=== PATIENT | male | born 1970 | race Caucasian/White ===

== ENCOUNTER → 2020-05-15 | Outpatient (CLI) | payer OTHER ==
[~2020-05-15] MED LIST: BACT800T; IBUP800T; ISOVUE-300 61% 50ML VIAL As Ordered ONE; PERC5TAB8; ZYVO100T
--- NOTE | 2020-07-04 08:09 | REP ---
CT ARTHROGRAPHY LEFT ELBOW WITH INTRAARTICULAR CONTRAST This report was delayed due to a protracted episode of network disruption experienced by this facility and by our retrieval of comparison radiographs. COMPARISON: 10/27/2019 and show tendon insertion site and osteoarthritic spurring. TECHNIQUE: The injection procedure was performed and dictated separately. Postinjection CT acquisition was performed with the elbow flexed at 90 degrees. Helical scanning is performed in 2 mm axial images and reformatted. Coronal and sagittal MPR images are generated and reviewed. FINDINGS: There is good opacification of the elbow articulation. No definite loose body. There is osteoarthritic spurring at the radiocapitellar, ulnotrochlear, and proximal radioulnar articulations. There is medial and lateral epicondylar spurring as seen on the radiographs. No focal articular cartilage deficit is appreciated. IMPRESSION: No definite loose body. Osteoarthritis. Medial and lateral epicondylar tendon insertion site spurring. MTDD
--- NOTE | 2020-07-04 08:11 | REP ---
LEFT ELBOW ARTHROGRAM: The procedure was performed under the direct supervision of Dr. Lowe. PROCEDURE: The benefits and risks including, but not limited to pain, infection, bleeding and anaphylaxis were explained to the patient and informed consent was obtained. The left radiohumeral joint space was localized using fluoroscopic guidance. The skin was prepped and draped in a sterile fashion. 1% lidocaine was used as a local anesthetic. Using fluoroscopic guidance, a 22-gauge needle was inserted and advanced into the joint. 7 cc of Isovue 300 was injected. The needle was removed and the patient was taken to CT scan for post procedural imaging. The patient tolerated the procedure well and there were no immediate complications. Less than 6 seconds of fluoroscopy time was utilized for this procedure. PASTOR
== END ==
LOC: M RADPRO 13:00
PROVIDERS: ATTEND Orthopaedic Surgery Hand Surgery
DX: M19.022 Primary osteoarthritis, left elbow (principal); M25.722 Osteophyte, left elbow
CPT/HCPCS: 24220; 73201; 77002; Q9967

== ENCOUNTER → 2020-05-17 | Outpatient (CLI) | payer OTHER ==
--- NOTE | 2020-07-04 08:12 | REP ---
RIGHT ELBOW ARTHROGRAM: The procedure was performed under the direct supervision of Dr. Lowe. The benefits and risks, including but not limited to pain, infection, bleeding an anaphylaxis were explained to the patient and informed consent was obtained. PROCEDURE: The right radial humeral joint space was localized using fluoroscopic guidance. The skin was prepped and draped in a sterile fashion. 1% lidocaine was used as a local anesthetic. Using fluoroscopic guidance, a 22-gauze needle was inserted and advanced into the joint. 6 cc of Isovue 300 was injected. The needle was removed and the patient was taken to CT scan for post procedural imaging. The patient tolerated the procedure well and there were no immediate complications. Less than 6 seconds of fluoroscopy time was utilized for this procedure. PASTOR
--- NOTE | 2020-07-04 08:14 | REP ---
CT ARTHROGRAM OF THE RIGHT ELBOW: HISTORY: Locking. TECHNIQUE: CT imaging performed of the right elbow with multiplanar reconstruction images following arthrogram procedure. The study is somewhat limited as apparently the patient is not able to straighten his arm at the elbow resulting in the images being obtained in nonstandard planes. FINDINGS: I see no evidence of acute fracture or dislocation. 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 There is moderate diffuse spurring which includes the humeral condyles, coronoid process, olecranon and humeral head. There are a few subcentimeter tiny calcifications in the soft tissues medial to the elbow joint. No obvious joint body is seen, but the presence of contrast could obscure small calcific joint bodies. If further evaluation is needed to evaluate for joint bodies, I would recommend a noncontrast CT of the elbow which would better display underlying calcific bodies. There is no evidence of tear of the medial or lateral collateral ligament. MTDD
== END ==
LOC: M RADPRO 13:00
PROVIDERS: ATTEND Orthopaedic Surgery Hand Surgery
DX: M25.721 Osteophyte, right elbow (principal); M94.221 Chondromalacia, right elbow
CPT/HCPCS: 24220; 73085; 73201; Q9967

== ENCOUNTER → 2020-09-16 | Outpatient (REF) | payer OTHER ==
[~2020-09-16] MED LIST changes: -ISOVUE-300 61% 50ML VIAL As Ordered ONE
[2020-09-16 18:40] LABS: APPEARANCE, URINE CLEAR (CLEAR); BACTERIA, URINE AUTO NEGATIVE (NEGATIVE); BILIRUBIN, URINE AUTO NEGATIVE (NEGATIVE); BLOOD, URINE BLOOD NEGATIVE (NEGATIVE); COLOR, URINE YELLOW (YELLOW); GLUCOSE, URINE (UA) AUTO NEGATIVE (NEGATIVE); KETONE, URINE AUTO NEGATIVE (NEGATIVE); LEUKOCYTE ESTERASE, URINE AUTO NEGATIVE (NEGATIVE); NITRITE, URINE AUTO NEGATIVE (NEGATIVE); PROTEIN, URINE AUTO NEGATIVE (NEGATIVE); RBC, URINE AUTO 1 /HPF (0-3); SPECIFIC GRAVITY URINE AUTO 1.017 (1.002-1.035); SQUAMOUS EPITHELIAL CELL UR AU 0 /HPF (0-6); UROBILINOGEN, URINE AUTO 0.2 mg/dL (0.0-2.0); WBC, URINE AUTO 0 /HPF (0-3)
== END ==
LOC: M SMT 16:56
PROVIDERS: ATTEND Nurse Practitioner Family
DX: R31.9 Hematuria, unspecified (principal)
CPT/HCPCS: 81001; 87086; 88108; G0463

== ENCOUNTER → 2021-12-26 | Outpatient (CLI) | payer OTHER | LOC: M PLAIMG 10:10 | PROVIDERS: ATTEND Otolaryngology | DX: J32.9 Chronic sinusitis, unspecified (principal) ==

== ENCOUNTER → 2022-03-19 | Outpatient (REF) | LOC: M PLAIMG 14:35 | PROVIDERS: ATTEND Internal Medicine | DX: J32.9 Chronic sinusitis, unspecified (principal) ==

== ENCOUNTER 2023-08-19 06:39 | Day surgery (SDC) | payer OTHER ==
[~2023-08-19] VITALS: Ht 182.9 cm; Wt 121.1 kg
[~2023-08-19 06:39] MED LIST changes: +ERGO500029 PO; +MONT10TA97 PO; +NS 1,000 ML IV ONE; +THERTAB52 PO; +ZYRT10TA12 PO
[2023-08-19] MEDS ORDERED: propofoL 200 MG/20 ML VIAL As Ordered ONE (07:18)
[2023-08-19] MEDS ORDERED: LIDOCAINE 2% 100MG/5ML SDV (FOR ANES.) As Ordered ONE (07:18)
[2023-08-19 07:58] VITALS: TEMP 98.6
[2023-08-19 08:17] VITALS: BP 129/67; O2SAT 96
== END 2023-08-19 08:17 | disposition home or self-care (01) ==
LOC: M SDC 06:39
PROVIDERS: ATTEND Surgery
DX: Z12.11 Encounter for screening for malignant neoplasm of colon (principal); K64.2 Third degree hemorrhoids; K21.01 Gastro-esophageal reflux disease with esophagitis, with bleeding; K44.9 Diaphragmatic hernia without obstruction or gangrene; D50.9 Iron deficiency anemia, unspecified; Z86.010 Personal history of colon polyps